=== PATIENT | female | born 1980 | race Caucasian/White ===

== ENCOUNTER 2017-09-01 01:28 | Inpatient (IN) | payer OTHER ==
[~2017-09-01] VITALS: Ht 163 cm; Wt 61.2 kg
[2017-09-01] MEDS ORDERED: RINGERS SOLUTION,LACTATED 1,000 ML IV ONE (02:30)
[2017-09-01 02:50] VITALS: BP 126/77
[2017-09-01] MEDS ORDERED: PREN-154 PO (03:00)
[2017-09-01] MEDS ORDERED: INFLUENZA VIRUS VACCINE QVS 2017-18 (3YR+)/PF 60 MCG/0.5 ML SYRINGE IM ONE (03:00)
[2017-09-01 03:17] LABS: BASOPHILS % (AUTO) 0.7 % (0.0-2.0); HEMATOCRIT 32.4 % (36-46); HEMOGLOBIN 11.3 g/dL (12.0-16.0); LYMPHOCYTES # (AUTO) 2.3 K/uL (1.0-4.8); LYMPHOCYTES % (AUTO) 18.5 % (22.0-44.0); MEAN CORPUSCULAR HGB CONC 34.9 G/dL (31.0-37.0); MEAN CORPUSCULAR VOLUME 95 fL (80-100); MONOCYTES # (AUTO) 1.3 K/uL (0.1-1.0); MONOCYTES % (AUTO) 10.4 % (2.0-9.0); NEUTROPHILS # (AUTO) 8.5 K/uL (1.8-7.7); NEUTROPHILS % (AUTO) 69.4 % (40.0-70.0); PLATELET COUNT (AUTO)-OB 198 K/uL (150-450); RED BLOOD CELL COUNT(AUTO) 3.43 MIL/uL (4.00-5.20); RED CELL DISTRIBUTION WIDTH 13.4 % (11.5-14.5)
[2017-09-01] MEDS ORDERED: MORPHINE SULFATE 2 MG/ML SYRINGE IVP PRN ×2 (06:30)
[2017-09-01] MEDS ORDERED: FentaNYL CITRATE-PF 100 MCG/2 ML VIAL IVP PRN ×3 (06:30)
[2017-09-01] MEDS ORDERED: NALBUPHINE HCL 10 MG/ML VIAL IVP PRN ×3 (06:30)
[2017-09-01] MEDS ORDERED: MEPERIDINE-PF 25 MG/ML SYRINGE IVP PRN (06:30)
[2017-09-01] MEDS ORDERED: DiphenhydrAMINE HCL 50 MG/ML VIAL IVP PRN ×2 (06:30)
[2017-09-01] MEDS ORDERED: NALOXONE HCL 0.4 MG/ML VIAL IVP PRN (06:30)
[2017-09-01] MEDS ORDERED: ACETAMINOPHEN 1000 MG/ISO-OSM 100 ML IV ONE ×2 (06:30→07:26)
[2017-09-01] MEDS ORDERED: MORPHINE SULFATE 10 MG/ML SYRINGE IVP PRN (06:30)
[2017-09-01] MEDS ORDERED: ONDANSETRON HCL 4 MG/2 ML VIAL IVP PRN ×2 (06:30)
[2017-09-01] MEDS ORDERED: LANOLIN 7 GM OINTMENT TP PRN (06:45)
[2017-09-01] MEDS ORDERED: ACETAMINOPHEN/CODEINE 300-30 MG TABLET PO PRN (06:45)
[2017-09-01] MEDS ORDERED: METOCLOPRAMIDE HCL 5 MG/ML 2 ML VIAL IVP ONE (07:00)
[2017-09-01] MEDS ORDERED: CITRIC ACID/SODIUM CITRATE 30 ML SOLUTION UDCUP PO ONE (07:00)
[2017-09-01] MEDS ORDERED: OXYGEN THERAPY IH SCH ×4 (08:00)
[2017-09-01] MEDS: MAGNESIUM HYDROXIDE SUSPENSION 30 ML UDCUP PO SCH (09:00)
[2017-09-01] MEDS: DEXTROSE 5%-0.45% SODIUM CHL 1,000 ML IV SCH ×4 (09:06→20:36)
[2017-09-01] MEDS: ACETAMINOPHEN 1000 MG/ISO-OSM 100 ML IV SCH ×2 (15:17→22:42)
[2017-09-01] MEDS ORDERED: OXYTOCIN 10 UNITS/ML VIAL IM ONE (21:19)
[2017-09-01] MEDS ORDERED: IBUPROFEN 800 MG TABLET PO SCH (23:00)
[2017-09-02] MEDS ORDERED: FentaNYL CITRATE-PF 100 MCG/2 ML VIAL IVP ONE (06:14)
[2017-09-02] MEDS ORDERED: MORPHINE SULFATE/PF 0.5 MG/ML 10 ML AMP IVP ONE (06:14)
[2017-09-02] MEDS: MAGNESIUM HYDROXIDE SUSPENSION 30 ML UDCUP PO SCH ×2 (08:32→21:23)
[2017-09-02] MEDS: IBUPROFEN 800 MG TABLET PO SCH ×2 (12:01→18:23)
[2017-09-02] MEDS: ACETAMINOPHEN/CODEINE 300-30 MG TABLET PO PRN ×2 (15:44→21:24)
[2017-09-03] MEDS: IBUPROFEN 800 MG TABLET PO SCH ×5 (00:01→19:44)
[2017-09-03] MEDS: MAGNESIUM HYDROXIDE SUSPENSION 30 ML UDCUP PO SCH ×2 (08:09→19:45)
[2017-09-04] MEDS: ACETAMINOPHEN/CODEINE 300-30 MG TABLET PO PRN (08:13)
[2017-09-04] MEDS: MAGNESIUM HYDROXIDE SUSPENSION 30 ML UDCUP PO SCH (08:55)
[2017-09-04] MEDS ORDERED: IBUP-2070 PO (09:03)
[2017-09-04] MEDS ORDERED: FERR-89 PO (09:04)
[2017-09-04] MEDS ORDERED: DSS100 PO (09:04)
[2017-09-04] MEDS ORDERED: ACET1TAB12 PO ×2 (09:05)
[2017-09-04] MEDS: IBUPROFEN 800 MG TABLET PO SCH (12:18)
== END 2017-09-04 13:50 | disposition home or self-care (01) | DRG 766 ==
LOC: OBSVTOIN 01:28 → 4S 01:28
PROVIDERS: ADMIT Obstetrics & Gynecology; ATTEND Obstetrics & Gynecology
PROC: 10D00Z1 Extraction of Products of Conception, Low, Open Approach (ICD-10-PCS; principal; 2017-09-01)
DX: O32.1XX0 Maternal care for breech presentation, not applicable or unspecified (principal); O76 Abnormality in fetal heart rate and rhythm complicating labor and delivery; Z37.0 Single live birth; Z3A.39 39 weeks gestation of pregnancy
CPT/HCPCS: 86850; 86900; 86901; 87081; 90471; J0131; J0690; J2274; J2300; J2405; J2590; J2765; J3010; J7120